=== PATIENT | female | born 1950 | race Caucasian/White ===

== ENCOUNTER 2019-07-23 08:45 | Emergency (ER) | payer BC ==
[~2019-07-23] VITALS: Ht 175.3 cm; Wt 102.1 kg
[2019-07-23 08:57] VITALS: BP_SYST 152
--- NOTE | 2019-07-23 09:02 | NUR ---
Patient to ER bed 04 to gown for evaluation. Side rails up.
--- NOTE | 2019-07-23 09:05 | NUR ---
Patient presented to ER C/O bloody nose. Patient A&Ox4, afebrile, ambulatory to ER, skin pink and warm, denies N/V/D, denies pain, nose actively bleeding, left eye has red blood vessels visable. Patient give nose clamp & gauze to control bleeding. Patient states she was getting ready this morning, bent over and she felt head pressure and nose started to bleed. Patient states she was unable to dtop nose bleed so she came to ER. Patient states she is on HTN medication but did not take it this morning.
--- NOTE | 2019-07-23 09:20 | NUR ---
ER Dr. Noonan at bedside examining patient.
[2019-07-23] MEDS ORDERED: TRANEXAMIC ACID 1,000 MG/10 ML VIAL IV ONE (09:30)
[2019-07-23 12:11] VITALS: BP_SYST 142
--- NOTE | 2019-07-23 12:11 | NUR ---
Patient given written and verbal discharge instructions and verbalizes understanding. ER MD discussed with patient the results and treatment provided. Patient in stable condition. ID arm band removed. No Rx given. Patient educated on pain management and to follow up with PMD. Pain Scale 2/10 tolerable for pt. Opportunity for questions provided and answered. Medication side effect fact sheet provided.
== END 2019-07-23 12:11 | disposition home or self-care (01) ==
LOC: SED 08:45
DX: R04.0 Epistaxis (principal); K21.9 Gastro-esophageal reflux disease without esophagitis; I10 Essential (primary) hypertension
CPT/HCPCS: 30901; 99284; J3490

== ENCOUNTER 2021-12-26 05:25 | Day surgery (SDC) | payer OTHER ==
[~2021-12-26] VITALS: Ht 175.3 cm; Wt 99.8 kg
[2021-12-26] MEDS ORDERED: ONDANSETRON HCL 4 MG/2 ML VIAL IVP ONE (05:26)
[2021-12-26] MEDS ORDERED: PROPOFOL 200MG/ 20ML VIAL (DIPRIVAN) IV ONE (05:26)
[2021-12-26] MEDS ORDERED: SIMETHICONE 40 MG/0.6 ML ML ONE (06:38)
[2021-12-26] MEDS ORDERED: METOCLOPRAMIDE HCL 10 MG/2 ML VIAL IVP PRN (07:45)
[2021-12-26] MEDS ORDERED: KETOROLAC TROMETHAMINE 30 MG VIAL IVP PRN ×3 (07:45)
[2021-12-26 11:27] VITALS: BP_SYST 121
== END 2021-12-26 09:40 | disposition home or self-care (01) ==
LOC: SMU 05:25 → SDS 05:25
PROVIDERS: ATTEND Internal Medicine
DX: Z09 Encounter for follow-up examination after completed treatment for conditions other than malignant neoplasm (principal); D12.0 Benign neoplasm of cecum; Z86.010 Personal history of colon polyps; K22.2 Esophageal obstruction; K64.8 Other hemorrhoids; K21.9 Gastro-esophageal reflux disease without esophagitis; Z79.899 Other long term (current) drug therapy; Z20.822 Contact with and (suspected) exposure to COVID-19
CPT/HCPCS: 36415 ×2; 45380; 87426; 87635; 88305; J2405; J2704; U0003